=== PATIENT | male | born 1985 | race Two or more races ===

== ENCOUNTER 2017-02-15 14:30 | Emergency (ER) | payer MEDICAID ==
[~2017-02-15] VITALS: Ht 185.4 cm; Wt 86.0 kg
[2017-02-15 15:10] VITALS: BP 145/80
[2017-02-15 16:36] LABS: BASOPHILS % 0.2 % (0.0-2.0); EOSINOPHILS % 0.3 % (0.0-5.0); HEMATOCRIT. 47.4 % (42.0-52.0); HEMOGLOBIN. 15.7 g/dL (14.0-18.0); LYMPHOCYTES % 9.2 % (20.0-50.0); MEAN CORPUSCULAR VOLUME 90.7 fL (80.0-94.0); MEAN PLATELET VOLUME 9.2 fl (7.4-10.4); MONOCYTES % 5.7 % (2.0-8.0); NEUTROPHILS % 84.6 % (40.0-76.0); PLATELET 232 x1000/uL (130-400); RED BLOOD CELL COUNT 5.23 mill/uL (4.7-6.1); RED CELL DISTRIBUTION WIDTH 13.1 % (11.6-14.6); WHITE BLOOD COUNT 17.5 x1000/uL (4.5-11.0)
[2017-02-15 16:37] LABS: CHLORIDE 103 mEq/L (98-107); INDEX HEMOLYSI 1 (1-3); INDEX ICTERIC 1 (1-4); INDEX LIPEMIC 1 (1-3)
[2017-02-15 16:47] LABS: CARBON DIOXIDE 27 mEq/L (21-32); UREA NITROGEN BLOOD 15 mg/dL (7-21)
[2017-02-15 16:49] LABS: eGFR > 60 mL/min (>60)
[2017-02-15 16:51] LABS: CLARITY URINE CLEAR (CLEAR); COLOR URINE YELLOW (YELLOW); GLUCOSE URINE NEGATIVE (NEGATIVE); KETONES URINE TRACE (NEGATIVE); LEUKOCYTE ESTERASE URINE TRACE (NEGATIVE); NITRITE URINE NEGATIVE (NEGATIVE); OCCULT BLOOD URINE 3+ (NEGATIVE); PROTEIN URINE 1+ (NEGATIVE); SPECIFIC GRAVITY URINE 1.016 (1.005-1.030); UROBILINOGEN URINE 0.2 E.U./dL (0.2-1.0)
[2017-02-15 17:09] LABS: ANION GAP 15
[2017-02-15 17:16] LABS: BACTERIA URINE TRACE; RBC URINE 25-50 /hpf (0-2); SQUAMOUS EPITHELIAL CELL URINE RARE /lpf (RARE/1+)
[2017-02-15 17:17] LABS: WBC URINE 0-2 /hpf (0-2)
== END 2017-02-15 17:56 | disposition home or self-care (01) ==
LOC: ER 15:00
DX: F17.210 Nicotine dependence, cigarettes, uncomplicated (principal); N23 Unspecified renal colic
CPT/HCPCS: 36415; 80048; 81001; 85025; 99284